=== PATIENT | female | born 1935 | race Caucasian/White ===

== ENCOUNTER → 2021-02-05 08:46 | Outpatient (CLI) | payer MEDICARE, BC ==
--- NOTE | ~2021-02-05 | ST ---
PATIENT:SPIKE CAMARILLO MEDICAL RECORD: [id number] SEX: F LOCATION:[facility] ORDER #: ADMISSION DATE: 02/05/21 AGE OF PATIENT: 85 REFERRING PHYSICIAN: INTERPRETING PHYSICIAN: BABAR DAN MD DATE OF SERVICE: 02/05/2021 NUCLEAR STRESS TEST. GATED: Shows mild anterior hypokinesis with LV function being preserved. Calculated EF 71%. SPECT IMAGING: Short axis view shows a reversible defect extending from the anterior base down the mid anterior wall including the anterior apex. This was confirmed in the horizontal axis with an anterior defect extending from the anterior base to the mid anterior wall and also including the anterior apex anterior apical region. Vertical axis, vertical axis shows a reversible apical defect. FINAL IMPRESSION: 1. Abnormal gated with abnormal wall motion, but preserved EF 71%. 2. Abnormal SPECT imaging with reversible defect seen in all 3 views. IMPRESSION: This patient is with ongoing risk factors and symptoms. The scan is worrisome for reversible ischemia with a defect size being a large defect. Severity is severe, would consider diagnostic angiography if clinically indicated. TRANSINT:[id number] Voice Confirmation ID: [id number] DOCUMENT ID: [id number] BABAR DAN MD CC: [id number] DICTATION DATE: 02/06/21901 NETWORK FIELD ENGINEER: 02/07/21 0436 DEP CLI 02/05/21 [id number] [place] [address]
== END | disposition home or self-care (01) ==
LOC: D.HCCARDIO 08:46
PROVIDERS: ATTEND Internal Medicine Interventional Cardiology
DX: R06.09 Other forms of dyspnea (principal)

== ENCOUNTER 2021-02-18 10:34 | Day surgery (SDC) | payer MEDICARE, BC ==
[~2021-02-18] VITALS: Ht 162.6 cm; Wt 82.3 kg
--- NOTE | ~2021-02-18 | HEMODYNAMI ---
PATIENT:SPIKE CAMARILLO MEDICAL RECORD: [id number] : 35 LOCATION:[facility] ADMISSION DATE: 02/18/21 Generatedon:113:43 Patient name: SPIKE CAMARILLO Patient #: [id number] SSN: : 1935 Date of study: 02/18/2021 Page: Of Hemodynamic Procedure Report Patient Data Patient Demographics Procedure consent was obtained First Name: SPIKE Gender: Female Last Name: RABIA : 1935 [facility] Initial: JOSAFAT Age: 85 year(s) Patient #: [id number] Race: Unknown Additional ID: [id number] Contact details Address: [address] [address] State: [place] City: [place] Zip code: [address] Past Medical History Performed procedures and imaging results Date Procedure Procedure Results Comments Stress testing Positive->Intermediate with SPECT MPI risk Allergies: No known allergies Admission Admission Data Admission Date: 02/18/2021 Admission Time: 10:34 Arrival Date: 02/18/2021 Arrival Time: 0:00 Height (in.): 63.78 BSA: 1.87 (m2) Height (cm.): 162 BMI: 31.25 (kg/m2) Weight (lbs.): 180.78 Weight (kg.): 82 Lab Results Lab Result Date: 02/18/2021 Lab Result Time: 0:00 Biochemistry Name Units Result Min Max BUN mg/dl 23 --(----)-* 7 18 Creatinine mg/dl 1.1 --(--*-)-- 0.6 1.3 eGFR ml/min 50 *-(----)-- 90 120 NONAFRICAN CBC Name Units Result Min Max Hematocrit % 38.3 *-(----)-- 42 54 Hemoglobin g/dl 13 -*(----)-- 13.5 17.5 Procedure Procedure Types Cath Procedure Diagnostic Procedure C [facility] w/Coronaries Aortic Root Angiography Sedation Charges Moderate Sedation 10-24 minutes Procedure Description Procedure Date Procedure Date: 02/18/2021 Procedure Start Time: 13:23 Procedure End Time: 13:39 Procedure Staff Name Function Edouard Peña MD Performing Physician Soy Bearden RT Monitor Bonny Delarosa RT Scrub Yu Mahoney RN Nurse Procedure Data Cath Procedure Fluoroscopy Diagnostic fluoroscopy Total fluoroscopy Time: 2.9 time: 2.9 min min Diagnostic fluoroscopy Total fluoroscopy dose: 579 dose: 579 mGy mGy Contrast Material Contrast Material Type Amount (ml) Isovue 370 77 Entry Location Entry Primary Successful Side Size Upsize Upsize Entry Closure Haas ccessful Closure Location (Fr) 1 (Fr) 2 (Fr) Remarks Device Remarks Radial Right 5 Fr Manual artery Compression Femoral Right 5 Fr Exoseal artery Estimated blood loss: 5 ml Diagnostic catheters Device Type Used For End Catheter Placement DIAGNOSTIC [place] 110cm 5 Left Coronary Fr catheter ([id number]) Angiography MULTIPACK JL 4.0 5Fr Left Coronary catheter Angiography MULTIPACK 3DRC 5Fr Right Coronary catheter Angiography MULTIPACK Pigtail 5 Fr LV Angiography catheter Procedure Complications No complications Procedure Medications Medication Administration Route Dosage Oxygen etCO2 Nasal cannula 2 l/min Lidocaine 2% added to field 20 Heparin Flush Bag added to field 2 bags (1000units/500ml NS) 0.9% NaCl I.V. 100 ml/hr Radial Cocktail I.A. 1 syringe (Verapamil 2mg/Nitro 400mcg/Heparin 1500units) Versed I.V. 1 mg Fentanyl I.V. 50 mcg Versed I.V. 1 mg Fentanyl I.V. 50 mcg Versed I.V. 1 mg Hemodynamics Rest BSA: 1.87 (m2) HGB: 13 (g/dl) O2 Consumption: Estimated: 180.81 (ml/min) O2 Cons umption indexed: Estimated:96.69 (ml/min/m) Heart Rate: 91 (bpm) Pressure Samples Time Site Value (mmHg) Purpose Heart Use Rate(bpm) 13:32 LV 134/-7,7 EDP 92 13:33 AO 126/65(94) Pullback 87 13:33 LV 134/-1,12 Pullback 87 Gradients Valve Time Site 1 Site 2 Mean SEP/DFP Peak To Heart Use (mmHg) (sec/min) Peak Rate (mmHg) (bpm) Aortic 13:33 LV AO 19 15 8 87 134/-1,12 126/65(94) Calculations Valve P-P Mean Valve Index Valve Source Name Gradient Area Flow (cm2) Aortic 8 19 8 19 Snapshots Pre Cath Intra NCS Post Cath Vital Signs Time Heart Resp SPO2 etCO2 NIBP (mmHg) Rhythm Pain Sedation Rate (ipm) (%) (mmHg) Status Level (bpm) 13:08:26 90 28 100 33.8 176/106(143) NSR 0 (11) 10(A) , No pain 13:10:43 86 16 98 33 148/93(130) NSR 0 (11) 10(A) , No pain 13:14:57 92 12 96 32.3 122/80(116) NSR 0 (11) 10(A) , No pain 13:19:13 90 12 97 24.8 125/79(109) NSR 0 (11) 10(A) , No pain 13:23:29 88 15 98 33 140/80(115) NSR 0 (11) 9(A) , No pain 13:27:41 87 17 95 30.8 110/73(92) NSR 0 (11) 9(A) , No pain 13:31:49 86 16 96 30.8 115/79(94) NSR 0 (11) 9(A) , No pain 13:36:03 88 18 97 32.3 123/79(102) NSR 0 (11) 10(A) , No pain Medications Time Medication Route Dose Verified Delivered Reason Notes Effectiveness by by 13:07:32 Oxygen etCO2 2 l/min Edouard Buffie used for Nasal Casey Mahoney RN procedure cannula 13:07:39 Lidocaine 2% added 20ml Edouard Edouard for local to vial Casey Peña MD anesthetic field 13:07:47 Heparin Flush added 2 bags Edouard Edouard used for Bag to Casey Peña MD procedure (1000units/500ml field NS) 13:07:56 0.9% NaCl I.V. 100 Edouard Buffie Per ml/hr Casey Mahoney RN physician 13:14:40 Versed I.V. 1 mg Edouard Buffie for sedation Casey Mahoney RN 13:14:45 Fentanyl I.V. 50 mcg Edouard Buffie for sedation Casey Mahoney RN 13:18:03 Fentanyl I.V. 50 mcg Edouard Buffie for sedation Casey Mahoney RN 13:18:59 Versed I.V. 1 mg Edouard Buffie for sedation Casey Mahoney RN 13:23:00 Radial Cocktail I.A. 1 Edouard Edouard for (Verapamil syringe Casey Peña MD vasodilation 2mg/Nitro 400mcg/Heparin 1500units) 13:25:33 Versed I.V. 1 mg Edouard Buffie for sedation Casey Mahoney RN Procedure Log Time Note 12:30:29 Informed consent obtained and on chart 12:30:58 Procedure Status Elective Heart Cath (OP). 12:31:00 Time tracking: Regular hours (M-F 7:00 - 5:00) 12:31:03 Plan of Care:Hemodynamics will remain stable., Cardiac rhythm will remain stable., Comfort level will be maintained., Respiratory function will remain adequate., Patient/ family verbilizes understanding of procedure., Procedure tolerated without complication., Recovers from procedure without complications.. 12:31:12 H&P Date Dictated: 02/18/2021 H&P Addendum completed by physician on day of procedure. (MUST COMPLETE FOR ALL OUTPATIENTS), New H&P dictated by physician.. 12:44:42 Lab Result : Hemoglobin 13 g/dl 12:44:42 Lab Result : eGFR NONAFRICAN 50 ml/min 12:44:42 Lab Result : BUN 23 mg/dl 12:44:42 Lab Result : Creatinine 1.1 mg/dl 12:44:42 Lab Result : Hematocrit 38.3 % 12:44:48 Patient Weight : 180.78 lbs 12:45:00 Patient Height : 63.78 inches 12:45:04 Arrival Date: 02/18/2021 12:00:00 AM 12:45:38 Patient allergic to No known allergies 12:46:27 Stress Test: yes; abnormal ANTERIOR 12:50:12 Yu Mahoney RN sent for patient. Start room use. 12:58:34 Patient received from Pre/Post Procedure Room to CCL 1 Alert and oriented. Tansferred to table in Supine position. 12:58:35 Warm blankets applied, and josep hugger turned on for patient comfort. 12:58:36 Correct patient and procedure confirmed by team. 12:58:36 ECG and BP/O2 sat monitors applied to patient. 13:07:04 Vital chart was started 13:07:07 Baseline sample Acquired. 13:07:10 Rhythm: sinus rhythm 13:07:11 Full Disclosure recording started 13:07:12 Pre-procedure instructions explained to patient. 13:07:12 Pre-op teaching completed and patient verbalized understanding. 13:07:16 Family in patients room. 13:07:19 Patient NPO since Midnight. 13:07:22 Is the patient allergic to Iodine/contrast media? No. 13:07:27 Is patient on blood thinner?No 13:07:31 Patient diabetic? No. 13:07:32 Oxygen 2 l/min etCO2 Nasal cannula was administered by Yu Mahoney RN; used for procedure; Verbal order read back and verified. 13:07:32 ----Pre-sedation anethsthesia assessment.---- 13:07:35 Previous problem with sedation/anesthesia? No ? 13:07:36 Snore? No 13:07:38 Sleep apnea? No 13:07:39 Lidocaine 2% 20ml vial added to field was administered by Edouard Peña MD; for local anesthetic; Verbal order read back and verified. 13:07:40 Deviated septum? No 13:07:41 Opens mouth fully? Yes 13:07:43 Sticks out tongue? Yes 13:07:47 Heparin Flush Bag (1000units/500ml NS) 2 bags added to field was administered by Edouard Peña MD; used for procedure; Verbal order read back and verified. 13:07:49 Airway obstruction? No ? 13:07:54 Dentures? Yes IN TIGHT 13:07:56 0.9% NaCl 100 ml/hr I.V. was administered by Yu Mahoney RN; Per physician; Verbal order read back and verified. 13:08:00 Pre procedure: right femoral pulse 2+ Normal; easily identifiable; not easily obliterated 13:08:03 Pre procedure: right radial pulse 2+ Normal; easily identifiable; not easily obliterated 13:08:06 Modified Scott's test Ulnar < 7 seconds 13:08:10 Patient pain scale 0/10 ?. 13:08:17 IV patent on arrival in left hand with 0.9% NaCl at 10ml/hr. 13:08:21 Lab results completed and on chart. 13:10:11 Risk of Mortality: 0.2 13:10:14 Risk of blood transfusion: 1 13:10:19 Risk of SUSIE: 3.5 13:10:22 Right Radial & Right Groin area was prepped with chlora-prep and draped in sterile fashion 13:10:23 Alarms reviewed by R. N. 13:10:24 Sharps counted by scrub and verified by R.N. 13:10:24 Physician arrived 13:10:25 --------ALL STOP TIME OUT------ 13:10:25 Final Timeout: patient, procedure, and site verified with staff and physician. All members of the team are in agreement. 13:10:27 Right Radial & Right Groin site verified by team. 13:10:35 Fire Safety Assessment: A--An alcohol-based skin anteseptic being used preoperatively., C--Open oxygen or nitrous oxide is being used., D--An ESU, laser, or fiber-optic light is being used. 13:10:39 Physical assessment completed. ASA score P 2 - A patient with mild systemic disease as per Edouard Peña MD. 13:10:48 3a) 45-59 Moderately reduced kidney function. 13:10:52 Maximum allowable contrast dose (3.7 X eGFR X 0.75)139 ml. 13:10:57 Sedation plan: IV Moderate Sedation Medication:Versed, Fentanyl 13:11:03 Use device set Radial Dx or PCI 13:11:28 ACIST Syringe (40076) opened to sterile field. 13:11:28 Medline Cath Pack ([id number]) opened to sterile field. 13:11:29 Bag Decanter () opened to sterile field. 13:11:29 ACIST Hand Control (91296) opened to sterile field. 13:11:29 ACIST Manifold (78456) opened to sterile field. 13:11:30 Tegaderm 4 x 4 (1626W) opened to sterile field. 13:11:31 MBrace Wrist Support (138765660) opened to sterile field. 13:11:32 NEEDLE Cook 21G 4cm Radial (G06613) opened to sterile field. 13:11:33 EMERALD Guide Wire (961-987) opened to sterile field. 13:11:35 SHEATH 6FR RAIN (3431184) opened to sterile field. 13:11:38 ZEPHYR REGULAR TR BAND (280911) opened to sterile field. 13:14:40 Versed 1 mg I.V. was administered by Yu Mahoney RN; for sedation; Verbal order read back and verified. 13:14:45 Fentanyl 50 mcg I.V. was administered by Yu Mahoney RN; for sedation; Verbal order read back and verified. 13:17:26 Zero performed for pressure channel P1 13:18:03 Fentanyl 50 mcg I.V. was administered by Yu Mahoney RN; for sedation; Verbal order read back and verified. 13:18:59 Versed 1 mg I.V. was administered by Yu Mahoney RN; for sedation; Verbal order read back and verified. 13:20:20 Procedure started. 13:23:00 Radial Cocktail (Verapamil 2mg/Nitro 400mcg/Heparin 1500units) 1 syringe I.A. was administered by Edouard Peña MD; for vasodilation; Verbal order read back and verified. 13:23:25 Local anesthetic to right radial artery with Lidocaine 2% by Edouard Peña MD.INITIAL ACCESS ONLY 13:23:33 A 5 Fr sheath was inserted into the Right Radial artery 13:25:18 A DIAGNOSTIC [place] 110cm 5 Fr catheter (689474) was advanced over the wire and used for Left Coronary Angiography.Unable to get around left subclavian. 13:25:33 Versed 1 mg I.V. was administered by Yu Mahoney RN; for sedation; Verbal order read back and verified. 13:25:53 SHEATH 5FR [place] (CUW811) opened to sterile field. 13:25:59 Use device set Multipack Set 13:26:06 DIAGNOSTIC Multipack 5Fr catheter set (NT3082) opened to sterile field. 13:26:17 Local anesthetic to right femoral artery with Lidocaine 2% by Edouard Peña MD.ADDITIONAL ACCESS 13:27:29 A 5 Fr sheath was inserted into the Right Femoral artery 13:27:51 A MULTIPACK JL 4.0 5Fr catheter was advanced over the wire and used for Left Coronary Angiography. 13:27:55 LCA angiography performed. 13:29:07 Catheter exchanged over wire. 13:30:24 A MULTIPACK 3DRC 5Fr catheter was advanced over the wire and used for Right Coronary Angiography. 13:30:29 RCA angiography performed. 13:30:49 Catheter exchanged over wire. 13:31:33 A MULTIPACK Pigtail 5 Fr catheter was advanced over the wire and used for LV Angiography. 13:32:34 EXOSEAL 5Fr (EX500) opened to sterile field. 13:32:51 LV angiography performed. 13:32:55 LV gram done using MARSH 13:32:56 LV hemodynamics recorded. 13:32:59 Injector settings: Ml/sec: 10, Volume: 20, 13:33:43 EF : 60 % 13:33:45 Aortic Root visualized 13:34:24 Procedure type changed to Cath procedure, Diagnostic procedure, [facility], [facility] w/Coronaries, Aortic Root Angiography, Sedation Charges, Moderate Sedation 10-24 minutes 13:34:53 Catheter exchanged over wire. 13:35:36 Contrast amount:Isovue 370 77ml. 13:36:26 Sheath removed intact; hemostasis achieved with Manual Compression to the Right Radial artery. 13:36:40 Sheath removed intact; hemostasis achieved with Exoseal to the Right Femoral artery. 13:36:45 Procedure ended.(Physican Out) 13:37:06 Fluoroscopy time 02.90 minutes. 13:37:11 Flurop Dose total: 579 13:37:11 Fluoroscopy dose: 579 mGy 13:37:27 Dose Area Product 83690 mGy/cm. 13:37:31 Maximum allowable dose exceeded? No. 13:37:32 Sharps counted by scrub and verified by R.N. 13:37:37 [place] band inflated with 10cc of air. 13:37:38 Insertion/operative site no bleeding no hematoma. 13:37:42 Post-op/insertion site Right Femoral artery dressed using a 4 x 4 and Tegaderm. 13:37:48 Post right radial artery:stable 13:37:50 Post Procedure Pulses reassessed and unchanged 13:37:54 Post procedure: right dorsailis pedis pulse 1+ Palpable, but thready & weak; easily obliterated. 13:38:20 Post procedure rhythm: unchanged. 13:38:42 Estimated blood loss: 5 ml 13:38:43 Post procedure instruction explained to patient.Patient verbalizes understanding. 13:38:44 Procedure and supply charges have been captured, reviewed, submitted and are correct. 13:38:48 Procedure Complication : No complications 13:38:50 Vital chart was stopped 13:38:55 [facility] Findings: JORGE العراقي will discuss options w/ pt 13:39:01 Operative report dictated upon procedure completion. 13:39:01 See physician's report for complete and final results. 13:39:04 Report given to Pre/Post Procedure Room. 13:39:08 Patient transfered to Pre/Post Procedure Room with Stretcher. 13:39:09 Procedure ended. 13:39:09 Full Disclosure recording stopped 13:39:12 End room use (Document Last) 13:42:16 End room use (Document Last) 13:42:44 End room use (Document Last) Device Usage Item Name Manufacture Quantity Catalog Hospital Part Current Minima l Lot# / Number Charge Number Stock Stock Serial# Code ACIST Acist 1 17275 524826 773592 133085 20 Syringe Medical (31241) Systems Inc Medline Medline 1 [id number] 290428 10671 889341 5 Cath Pack ([id number]) Bag Microtek 1 2001S 493622 82481 615349 5 Decanter Medical Inc. () ACIST Hand Acist 1 63779 503723 130809 074788 5 Control Medical (03280) Systems Inc ACIST Acist 1 64411 886396 773865 020245 5 Manifold Medical (51021) Systems Inc Tegaderm 4 3M 1 1626W 274353 506090 770522 5 x 4 (1626W) MBrace Advanced 1 140-0250-00 804515 20395 071026 5 Wrist Vascular Support Dynamics ([id number]) NEEDLE Cook Cook Medical 1 I25519 797494 855518 458443 5 21G 4cm Radial (N53931) EMERALD Cardinal 1 502-455 547499 851573 957049 5 Guide Wire Health (502-455) SHEATH 6FR Cardinal 1 2436827 490500 2945446 733865 5 RAIN Health (9448709) ZEPHYR Cardinal 1 774230 768396 7567729 772149 5 REGULAR TR Health BAND (730948) DIAGNOSTIC Terumo 1 40-5013 676559 090996 588700 5 [place] 110cm 5 Fr catheter (263681) SHEATH 5FR Terumo 1 AJV734 157443 098212 053728 5 [place] (CIP760) DIAGNOSTIC Cardinal 1 KP5812 316144 25676 632634 30 Multipack Health 5Fr catheter set (IB9668) MULTIPACK Cardinal 1 279220 5 JL 4.0 5Fr Health catheter MULTIPACK Cardinal 1 777774 5 3DRC 5Fr Health catheter MULTIPACK Cardinal 1 061903 5 Pigtail 5 Health Fr catheter EXOSEAL 5Fr Cardinal 1 EX500 973614 303991 738807 10 (EX500) Health Signature Audit [place] Stage Time Signature Unsigned Intra-Procedure 02/18/2021 Soy Bearden RT(R) 1:42:16 PM Intra-Procedure 02/18/2021 Yu Mahoney RN 1:42:44 PM Intra-Procedure 02/18/2021 Edouard Peña MD 1:43:14 PM [facility] [address] [place] [address]
[2021-02-18] MEDS ORDERED: LIPITOR20 MG PO (11:03)
[2021-02-18] MEDS ORDERED: TRIAMTERENE-HC1 EAC6 PO (11:03)
[2021-02-18] MEDS ORDERED: CO Q-10400 MG PO (11:05)
[2021-02-18] MEDS ORDERED: LEVOXYL25 MCG PO (11:05)
[2021-02-18] MEDS ORDERED: OMEPRAZOLE20 M1 PO (11:06)
[2021-02-18] MEDS ORDERED: NAC600 MG PO (11:07)
[2021-02-18] MEDS ORDERED: ACETAMINOPHEN325 MG PO (11:07)
[2021-02-18 11:14] VITALS: BP 190/90; Ht 162.6 cm; Wt 82.3 kg
[2021-02-18 11:36] LABS: BASOPHILS 0.4 % (0-2); EOSINOPHILS 1.4 % (0-7); HEMATOCRIT 38.3 % (36.0-48.0); LYMPHOCYTES 24.1 % (15-50); MCH 31.2 pg (26.0-34.0); MCV 91.6 fL (80.0-100.0); MEAN PLATELET VOLUME 7.9 fL (7.4-10.4); MONOCYTES 8.8 % (2-11); NEUTROPHILS 65.3 % (40-80); PLATELET COUNT 198 10x3/uL (130-400); RBC 4.18 10x6/uL (4.00-5.40); RDW 13.2 % (11.5-14.5); WBC 5.3 10x3/uL (4.8-10.8)
[2021-02-18 11:50] LABS: ANION GAP 15.9 mmol/L (8-16); CALCIUM 9.4 mg/dL (8.5-10.1); CHOL - HDL RATIO 4.3 ratio (2.3-4.1); CREATININE - SERUM 1.1 mg/dL (0.6-1.3); LDL-HDL RATIO 2.4 ratio (1.5-3.5); POTASSIUM - SERUM 3.9 mmol/L (3.5-5.1)
--- NOTE | 2021-02-18 13:51 | NUR ---
PT ARRIVED TO CATH RECOVERY ROOM 10. MONITORING EQUIPMENT APPLIED. R GROIN EXOSEAL CDI, NO S/S OF HEMATOMA. R WRIST Z BAND SITE CDI, WITH NO S/S OF BLEEDING. PERIPHERAL PULSES PRESENT. FRIEND AT BEDSIDE. INSTRUCTED TO KEEP R LEG STRAIGHT, R WRIST STRAIGHT, AND HEAD FLAT ON PILLOW. DROWSY, AROUSES TO VERBAL STIMULI AND FOLLOWS ALL COMMANDS. CALL LIGHT WITHIN PT REACH.
--- NOTE | 2021-02-18 14:05 | NUR ---
R GROIN EXOSEAL CDI WITH NO S/S OF HEMATOMA. R WRIST Z BAND SITE CDI WITH NO S/S OF BLEEDING. NO C/O NAUSEA OR PAIN AT THIS TIME. UNLABORED RESPIRATIONS. AOX4, FOLLOWS COMMANDS. CALL LIGHT WITHIN PT REACH.
--- NOTE | 2021-02-18 14:20 | NUR ---
ASSESSMENT COMPLETE, R GROIN EXOSEAL CDI WITH NO S/S OF HEMATOMA. R WRIST Z BAND SITE CDI. PERIPHERAL PULSES PRESENT. NO C/O PAIN OR NAUSEA. AOX4, FOLLOWS COMMANDS. CALL LIGHT WITHIN PT REACH.
--- NOTE | 2021-02-18 14:35 | NUR ---
R GROIN EXOSEAL CDI WITH NO S/S OF HEMATOMA. R WRIST Z BAND SITE CDI. PERIPHERAL PULSES PRESENT. PT AOX4, FOLLOWS COMMANDS. RESTING QUIETLY WITH NO COMPLAINTS. CALL LIGHT WITHIN PT REACH.
--- NOTE | 2021-02-18 14:45 | NUR ---
R GROIN EXOSEAL CDI WITH NO S/S OF HEMATOMA. R WRIST Z BAND SITE CDI. PERIPHERAL PULSES PRESENT. NO COMPLAINTS AT THIS TIME. CALL LIGHT WITHIN PT REACH.
--- NOTE | 2021-02-18 15:00 | NUR ---
R GROIN EXOSEAL CDI WITH NO S/S OF HEMATOMA. R WRIST Z BAND SITE CDI. PT ASSISTED ON BEDPAN, VOIDS WITH NO DIFFICULTY. HOB ELEVATED TO 30 DEGREES. SANDWICH TRAY PROVIDED.
--- NOTE | 2021-02-18 15:15 | NUR ---
ATE 100% OF SANDWICH TRAY. R GROIN EXOSEAL CDI WITH NO S/S OF HEMATOMA. R WRIST Z BAND SITE CDI WITH NO S/S OF BLEEDING. PERIPHERAL PULSES PRESENT. NO COMPLAINTS AT THIS TIME. CALL LIGHT WITHIN PT REACH.
--- NOTE | 2021-02-18 15:20 | NUR ---
R GROIN EXOSEAL CDI WITH NO S/S OF HEMATOMA. R WRIST Z BAND SITE CDI, 3CC TOTAL AIR RELEASED FROM Z BAND, NO S/S OF BLEEDING. CALL LIGHT WITHIN PT REACH.
--- NOTE | 2021-02-18 15:30 | NUR ---
R GROIN EXOSEAL CDI WITH NO S/S OF HEMATOMA. R WRIST Z BAND SITE CDI, 7ML TOTAL RELEASED FROM Z BAND WITH NO S/S OF BLEEDING. CALL LIGHT WITHIN PT REACH.
--- NOTE | 2021-02-18 15:45 | NUR ---
ALL AIR RELEASED FROM R WRIST Z BAND WITH NO S/S OF BLEEDING. R GROIN EXOSEAL CDI WITH NO S/S OF HEMATOMA. PERIPHERAL PULSES PRESENT. NO C/O PAIN OR NAUSEA.
--- NOTE | 2021-02-18 16:00 | NUR ---
R WRIST REMAINS CLEAN AND DRY WITH NO S/S OF BLEEDING. R GROIN EXOSEAL CDI WITH NO S/S OF HEMATOMA. PERIPHERAL PULSES PRESENT.
--- NOTE | 2021-02-18 16:30 | NUR ---
PIV D/C'D WITH CATH TIP INTACT. DISCHARGE INSTRUCTIONS PROVIDED. PT AND PT FRIEND BOTH VERBALIZE UNDERSTANDING OF DISCHARGE INSTRUCTIONS.
--- NOTE | 2021-02-18 16:30 | NUR ---
CRISTOBAL PROVIDED UPDATE TO PT AND PT FRIEND
--- NOTE | 2021-02-18 16:40 | NUR ---
DISCHARGED VIA WHEELCHAIR TO PRIVATE VEHICLE. ALL BELONGINGS AND PAPERWORK WITH PATIENT.
== END 2021-02-18 16:40 | disposition home or self-care (01) ==
LOC: D.CATH 10:34
PROVIDERS: ATTEND Internal Medicine Cardiovascular Disease
DX: I20.9 Angina pectoris, unspecified (principal); E78.5 Hyperlipidemia, unspecified; I10 Essential (primary) hypertension; K21.9 Gastro-esophageal reflux disease without esophagitis; R06.09 Other forms of dyspnea; I35.0 Nonrheumatic aortic (valve) stenosis

== ENCOUNTER → 2021-03-03 12:28 | Outpatient (CLI) | payer MEDICARE, BC ==
[2021-02-18 11:14] VITALS: BMI 31.1
[~2021-03-03 12:28] MED LIST: ACETAMINOPHEN325 MG PO; CO Q-10400 MG PO; LEVOXYL25 MCG PO; LIPITOR20 MG PO; NAC600 MG PO; OMEPRAZOLE20 M1 PO; TRIAMTERENE-HC1 EAC6 PO
== END | disposition home or self-care (01) ==
LOC: D.US 12:28
PROVIDERS: ATTEND Thoracic Surgery (Cardiothoracic Vascular Surgery)
DX: I25.10 Atherosclerotic heart disease of native coronary artery without angina pectoris (principal)